=== PATIENT | male | born 1940 | race Caucasian/White ===

== ENCOUNTER → 2021-09-12 | Outpatient (CLI) | payer MEDICARE, SELFPAY ==
--- NOTE | 2021-09-12 16:37 | RAD_ITS ---
STUDY: X-RAY CHEST REASON FOR EXAM: Male, 81 years old. DYSPNEA, ASBESTOS EXPOSURE TECHNIQUE: XR Chest 2 Views COMPARISON: Prior comparison studies are not available for review at this time. FINDINGS: Bilateral calcified pleural plaques. Normal size heart. Normal mediastinum and noe. Normal visualized pulmonary arteries. There is atherosclerotic calcification of the aortic arch with tortuosity. There are diffuse degenerative changes of the visualized thoracic spine. There is degenerative osteoarthritis of the bilateral shoulders. There is no demonstrated abnormality of the visualized soft tissue structures of the upper abdomen. RAD/Chest PA and Lateral IMPRESSION: There are no acute findings. Electronically Signed: Eric Stoll MD at 21:10 EDT ,
== END | disposition home or self-care (01) ==
LOC: MTRAD 16:36
PROVIDERS: PCP Family Medicine; Referring Provider Internal Medicine Pulmonary Disease; Visit Provider Internal Medicine Pulmonary Disease
DX: R06.00 Dyspnea, unspecified (principal); Z77.090 Contact with and (suspected) exposure to asbestos
CPT/HCPCS: 71046